=== PATIENT | male | born 1960 | race Caucasian/White ===

== ENCOUNTER 2018-02-11 07:41 | Emergency (ER) | payer BC ==
[2018-02-11 08:09] VITALS: BP 125/81
--- NOTE | 2018-02-11 08:27 | ED ---
Nausea/Vomiting/Diarrhea HPI - HPI Summary HPI Summary: Diarrhea, subjective fever, myalgias, headache since yesterday. NO nuchal rigidity. No blood in stool. No consistent abd pain. No prior abd surgeries. Well water but is fine. - History of Current Complaint Chief Complaint: UCGeneralIllness Stated Complaint: FEVER HEADACHE ACHY Time Seen by Provider: 02/11/18 08:10 Hx Obtained From: Patient, Family/Clinical Psychologist Licensed Onset/Duration: Gradual Onset, Lasting Hours Timing: Constant Severity Initially: Moderate Severity Currently: Moderate Pain Intensity: 6 Character: Cramping Aggravating Factor(s): Nothing Alleviating Factor(s): Nothing Nausea/Vomiting Presence: None Diarrhea Presence: Yes Diarrhea Frequency: Every 1-2 hours Diarrhea Characteristics: Watery - Allergies/Home Medications Allergies/Adverse Reactions: Allergies Allergy/AdvReac Type Severity Reaction Status Date / Time No Known Allergies Allergy Verified 02/11/18 08:08 Home Medications: Home Medications Acetaminophen TAB* [Tylenol TAB*] 650 mg PO Q4H PRN 02/11/18 [History Confirmed 02/11/18] Fluticasone Furoate [Arnuity Ellipta] 100 mcg IN DAILY 02/11/18 [History Confirmed 02/11/18] Montelukast Sodium TAB* [Singulair TAB*] 10 mg PO DAILY 02/11/18 [History Confirmed 02/11/18] PMH/Surg Hx/FS Hx/Imm Hx Previously Healthy: No - asthma. Pneumonia. Respiratory History: Reports: Hx Asthma Infectious Disease History: No Infectious Disease History: Denies: Traveled Outside the [place] in Last 30 Days - Social History Alcohol Use: Daily Alcohol Amount: 1 beer Substance Use Type: Reports: None Smoking Status (MU): Former Smoker Review of Systems Positive: Fever, Chills, Fatigue Positive: Arthralgia, Myalgia Positive: Headache All Other Systems Reviewed And Are Negative: Yes Physical Exam Triage Information Reviewed: Yes Vital Signs On Initial Exam: Initial Vitals Temp Pulse Resp BP Pulse Ox 98.7 F 72 20 125/81 97 02/11/18 08:02 02/11/18 08:02 02/11/18 08:02 02/11/18 08:02 02/11/18 08:02 Vital Signs Reviewed: Yes Appearance: Positive: Well-Appearing Head/Face: Positive: Normal Head/Face Inspection - No nuchal rigidity. Mucosa moist. Eyes: Positive: Normal Neck: Positive: Supple, Nontender, No Lymphadenopathy Cardiovascular: Positive: Normal Abdomen Description: Positive: Nontender, No Organomegaly, Soft. Negative: Distended, Guarding Musculoskeletal: Positive: Normal Neurological: Positive: Normal, Sensory/Motor Intact, Alert, Oriented to Person Place, Time, CN Intact II-III. Negative: Disoriented Psychiatric: Positive: Normal Diagnostics - Vital Signs Vital Signs Temp Pulse Resp BP Pulse Ox 02/11/18 08:02 98.7 F 72 20 125/81 97 - Laboratory Lab Statement: Any lab studies that have been ordered have been reviewed, and results considered in the medical decision making process. Naus/Vom/Diarrhea Course/Dx - Course Course Of Treatment: No blood, no abd tenderness, no confusion or nuchal rigidity. - Differential Dx/Diagnosis Differential Diagnoses - Male: Diverticulitis Provider Diagnoses: diarrhea. Condition At Discharge: Good Discharge - Sign-Out/Discharge Documenting (check all that apply): Patient Departure - Discharge Plan Condition: Good Disposition: HOME Patient Education Materials: Acute Diarrhea (ED) Forms: *Work Release Referrals: Daryn Gresham MD [Primary Care Provider] - - Billing Disposition and Condition Condition: GOOD Disposition: Home
== END 2018-02-11 08:25 | disposition home or self-care (01) ==
LOC: UCCORT 07:41
DX: R19.7 Diarrhea, unspecified (principal); M79.1 Myalgia; R50.9 Fever, unspecified; R51 Headache; J45.909 Unspecified asthma, uncomplicated; Z87.891 Personal history of nicotine dependence
CPT/HCPCS: 99211; G0463